=== PATIENT | female | born 1945 | race African-American/Black ===

== ENCOUNTER 2016-11-23 19:19 | Inpatient (IN) | payer OTHER, MEDICARE ==
[~2016-11-23] VITALS: Ht 167.6 cm; Wt 96.6 kg
[2016-11-23] MEDS ORDERED: SODIUM CHLORIDE 0.9% 1,000 ML IV ONE (19:31)
[2016-11-23 19:51] LABS: BASOPHILS % 0.8 % (0.0-2.0); EOSINOPHILS % 5.3 % (0.0-5.0); HEMATOCRIT. 38.6 % (36.0-48.0); LYMPHOCYTES % 23.9 % (20.0-50.0); MEAN CORPUSCULAR HEMOGLOBIN 31.3 pg (28.0-32.0); MEAN CORPUSCULAR VOLUME 93.3 fL (81.0-99.0); MEAN PLATELET VOLUME 8.1 fl (7.4-10.4); MONOCYTES % 6.2 % (2.0-8.0); NEUTROPHILS % 63.8 % (40.0-76.0); PLATELET 173 x1000/uL (130-400); RED BLOOD CELL COUNT 4.14 mill/uL (4.2-5.4); RED CELL DISTRIBUTION WIDTH 13.5 % (11.6-14.6)
[2016-11-23 20:09] LABS: CARBON DIOXIDE 27 mEq/L (21-32); CHLORIDE 107 mEq/L (98-107); CREATINE KINASE MB FRACTION 0.5 ng/mL (0.5-3.6); TROPONIN I < 0.02 ng/mL (0.00-0.04)
[2016-11-23] MEDS ORDERED: ASPIRIN 81MG TABLET PO ONE (22:45)
[2016-11-24 00:13] VITALS: BP 131/80
[2016-11-24] MEDS: SODIUM CHLORIDE 0.9% 1,000 ML IV SCH ×2 (01:07→13:07)
[2016-11-24 04:00] VITALS: BP 111/65
[2016-11-24 05:45] LABS: BASOPHILS % 0.6 % (0.0-2.0); EOSINOPHILS % 3.6 % (0.0-5.0); HEMOGLOBIN. 11.8 g/dL (12.0-16.0); LYMPHOCYTES % 18.5 % (20.0-50.0); MEAN CORPUSCULAR HEMOGLOBIN 31.2 pg (28.0-32.0); MEAN CORPUSCULAR VOLUME 92.3 fL (81.0-99.0); MEAN PLATELET VOLUME 8.6 fl (7.4-10.4); MONOCYTES % 10.3 % (2.0-8.0); PLATELET 176 x1000/uL (130-400); RED BLOOD CELL COUNT 3.79 mill/uL (4.2-5.4); RED CELL DISTRIBUTION WIDTH 13.8 % (11.6-14.6)
[2016-11-24 05:59] LABS: CARBON DIOXIDE 27 mEq/L (21-32); CHLORIDE 110 mEq/L (98-107); HDL CHOLESTEROL 65 mg/dL (40-59); LDL CHOLESTEROL 90 mg/dL (5-100)
[2016-11-24 08:47] VITALS: BP 125/76
[2016-11-24] MEDS ORDERED: ENOXAPARIN 40MG/0.4ML SYR SUBCUT SCH (09:00)
[2016-11-24] MEDS ORDERED: ASPIRIN 81MG TABLET PO SCH (09:00)
[2016-11-24 12:05] VITALS: BP 124/76
[2016-11-24] MEDS ORDERED: PERMETHRIN 5% CREAM 60GM TOP NR (13:00)
[2016-11-24 16:22] VITALS: BP 128/78
[2016-11-24 18:46] LABS: ETHANOL BLOOD < 10 mg/dL; HDL CHOLESTEROL 70 mg/dL (40-59); LDL CHOLESTEROL 96 mg/dL (5-100); T4 FREE 1.03 ng/dL (0.76-1.46)
[2016-11-24 19:07] LABS: FOLIC ACID (FOLATE) SERUM > 20.00 ng/mL (>5.38); VITAMIN B12 SERUM > 2000 pg/mL (211-911)
[2016-11-24 20:00] VITALS: BP 139/96
[2016-11-24] MEDS ORDERED: ATORVASTATIN CALCIUM 20MG TABLET PO SCH (21:00)
[2016-11-25] VITALS: BP 137/84
[2016-11-25 04:00] VITALS: BP 127/76
== END 2016-11-25 09:05 | disposition left against medical advice (07) | DRG 65 ==
LOC: ER 19:20 → 5WST 23:14 → EDBEDREQ 23:17 → ENRESERV 23:18 → 5WST 11-24 01:13
PROVIDERS: ADMIT Internal Medicine; ATTEND Internal Medicine
DX: I63.9 Cerebral infarction, unspecified (principal); G45.9 Transient cerebral ischemic attack, unspecified; E78.00 Pure hypercholesterolemia, unspecified; I10 Essential (primary) hypertension; R26.9 Unspecified abnormalities of gait and mobility; R47.81 Slurred speech
CPT/HCPCS: 36415; 70450; 70544; 70553; 71010; 80048; 80053; 80061; 82553; 82607; 82746; 83036; 84439; 84443; 84481; 84484; 85025; 92610; 93005; 96360; 99285; G0482; J1650; J7030